=== PATIENT | male | born 1970 | race Two or more races ===

== ENCOUNTER 2017-07-21 08:29 | Emergency (ER) | payer MEDICAID ==
[~2017-07-21] VITALS: Ht 165.1 cm; Wt 90.7 kg
[2017-07-21 09:03] VITALS: BP 126/74
[2017-07-21] MEDS ORDERED: IBUPROFEN 800 MG TAB PO ONE (11:00)
== END 2017-07-21 11:59 | disposition home or self-care (01) ==
LOC: ER 08:29
DX: S39.012A Strain of muscle, fascia and tendon of lower back, initial encounter (principal); S20.219A Contusion of unspecified front wall of thorax, initial encounter; V43.52XA Car driver injured in collision with other type car in traffic accident, initial encounter; Y93.89 Activity, other specified; Y99.8 Other external cause status; Y92.488 Other paved roadways as the place of occurrence of the external cause
CPT/HCPCS: 71046; 71250; 72100